=== PATIENT | male | born 1940 | race Caucasian/White ===

== ENCOUNTER → 2023-11-08 14:49 | Outpatient (REF) | payer OTHER, SELFPAY ==
[2023-11-08 15:41] LABS: % Basophils 0.4 % (0-2); % Immature Granulocytes 1.1 % (0-0.5); % Lymphocytes 3.6 % (20.5-51.1); % Monocytes 7.5 % (1.7-9.3); % Neutrophils 87.4 % (42.2-75.2); Absolute Basophils 0.1 10^3/uL (0-0.2); Absolute Immature Granulocytes 0.3 10^3/uL (0-0.05); Absolute Lymphocytes 0.8 10^3/uL (1.2-3.4); Absolute Monocytes 1.7 10^3/uL (0.1-0.6); Absolute Neutrophils 19.7 10^3/uL (1.4-6.5); Hematocrit 43.3 % (39.0-52.0); Mean Corp Hgb Conc. 34.6 g/dL (33.0-37.0); Mean Corpuscular Hgb 30.7 pg (27.0-31.0); Mean Corpuscular Volume 88.5 fL (80.0-94.0); Nucleated Red Blood Cells % 0 % (-); Platelet Count 159 10^3/uL (130-400); Red Blood Cell Count 4.89 10^6/uL (4.70-6.10); Red Cell Dist. Width 13.9 % (11.5-14.5); White Blood Cell Count 22.5 10^3/uL (4.8-10.8)
[2023-11-08 15:56] LABS: ALT (SGPT) 34 U/L (0-50); AST (SGOT) 39 U/L (17-59); Albumin 4.5 g/dl (3.5-5.0); Alkaline Phosphatase 108 U/L (38-126); Blood Urea Nitrogen 23 mg/dl (9-20); Calcium 9.3 mg/dl (8.4-10.2); Carbon Dioxide 19 mmol/L (22-30); Chloride 103 mmol/L (98-107); Glucose 139 mg/dl (70-99); Potassium 4.2 mmol/L (3.5-5.1); Sodium 139 mmol/L (135-145); Total Bilirubin 1.5 mg/dl (0.2-1.3); Total Protein 7.1 g/dl (6.3-8.2); eGFR 54.85
[2023-11-08 16:14] LABS: C-Reactive Protein > 270.00 mg/L (0.0-10.00)
== END ==
LOC: RAD 14:49
PROVIDERS: ATTENDING PHYSICIAN Family Medicine; FAMILY PHYSICIAN Family Medicine
DX: R09.02 Hypoxemia (principal); R50.9 Fever, unspecified; R41.0 Disorientation, unspecified
CPT/HCPCS: 36415; 71046; 80053; 85025; 86140

== ENCOUNTER 2023-11-08 21:31 | Inpatient (IN) | payer OTHER, SELFPAY ==
[2023-11-08 16:59] VITALS: BP 117/85
--- NOTE | 2023-11-08 18:42 | ED.GENMED ---
History of Present Illness
General
Chief Complaint: Abnormal Lab Value
Source: patient, family and physician
Time Seen by Provider: 11/08/23 18:30
History of Present Illness
History of Present Illness:
83-year-old male with past medical history of atrial fibrillation, hypertension, hyperlipidemia, COPD, chronic prostate issues presenting to the emergency department for evaluation at the request of his primary care provider after patient had
abnormal blood work done here earlier this morning revealing a leukocytosis and elevated inflammatory curves. Patient reportedly had a fever of 100.4 this morning and per family seemed a little bit confused. Per primary care patient had a normal
chest x-ray and his urine was likely infectious. Patient does note that since he had a procedure on his prostate about a year ago he has had urinary leakage but reports that this improved throughout the year. He denies any dysuria, hematuria,
current frequency/urgency, malodor or cloudy urine. Patient states presently he feels 'pretty good' and has no specific concerns.
Past History
Past History
ED Past Medical History: Arrthythmia, COPD, HTN and Hypercholesterolemia
ED Past Surgical History: Tonsilectomy
Social History
Tobacco: Non-smoker
Alcohol: None
Drug: None
Personal:
Living: with family
Review of Systems
Review of Systems
All Other Systems: ROS reviewed and negative except as documented in HPI and ROS
Phy Exam
Physical Exam
Physical Exam:
GENERAL: Alert , in no apparent distress
HEAD: NCAT
EYE: conjunctiva clear
NECK: Supple
ENT: mmm.
CARDIAC: Borderline tachycardic rate and rhythm, no murmur
LUNGS: Clear breath sounds bilaterally, no acute respiratory distress, no wheezes/rales/rhonchi
ABDOMEN: soft, non-tender, non distended
NEUROLOGICAL: Alert and oriented x 3
SKIN: Warm and dry, skin intact. no rashes
MUSCULOSKELETAL: well perfused.
PSYCH: Normal and appropriate interaction.
Scores
Heart Failure Risk
Heart Failure Risk Score: Not Applicable
Heart Score for Chest Pain Patients
STEMI patient?: Not applicable
Withdrawal Assessment of Alcohol
Withdrawal Assessment Completed?: Not applicable
Sepsis
Sepsis Screening
Sepsis Assessment: Sepsis
Sepsis Screen
Sepsis Screen: Sepsis
Date: 11/08/23
Time: 22:07
Course
Orders/Labs/Results
Orders:
Orders
11/08/23 18:33
Cardiac Monitoring- Treatment ONCE
11/08/23 18:59
0.9% Sodium Chloride 1000 ml [Nss] 2,400 ml IV NOW STA
11/08/23 19:04
COVID-19 Antigen Urgent
Source: Nasal Swab
Complete Blood Count/With Diff Urgent
Comprehensive Metabolic Panel Urgent
Lactic Acid Q4H
Comment: CANCEL 2nd LACTIC ACID IF 1st LACTIC ACID IS LESS THAN 2
Blood Culture Urgent
[facility] Source: Blood/Venous
Specimen Description:
Influenza A+B Rapid Molecular Urgent
[facility] Source: Nasal Swab
Specimen Description:
11/08/23 20:00
Blood Culture Routine
HIMAN[facility]U Source: Blood/Venous
Specimen Description:
11/08/23 20:03
Urinalysis Reflex To Culture Urgent
Date Specimen was Collected: 11/08/23
Time Specimen was Collected: 20:02
Urine Microscopic Reflex Cult Urgent
Urine Culture Urgent
HIMANSHU Source: U
Specimen Description:
Date Specimen was Collected: 11/08/23
Time Specimen was Collected: 20:02
11/08/23 20:32
Cefepime HCl [Maxipime] 2,000 mg IV NOW STA
11/08/23 20:53
Admit/Transfer Patient As Directed
Co-Sign Provider:
Level of Care: Inpatient admission
Assign to:: Telemetry
Physician / Group: Htay
Diagnosis: Sepsis
Reason for Telemetry: Arrhythmia
Date to Stop Telemetry: 11/11/23
Time to Stop Telemetry: 11:00
Reason for Hospitalization: IV abx
Expected length of stay greater than two midnights?: Yes
ELOS- Estimated Length of Stay in days: 3
I certify the patient meets the requirements for IP care: Yes
PRN Pain Medication Management As Directed
May give lesser potent ordered pain med per pt: Yes
preference::
Protocol:: Medication orders for pain may be administered in a
manner that supports deferring to patient preference
when the pt is:
- Requesting an ordered lesser potent pain medication.
Least to most potent pain medications are defined
as: acetaminophen < NSAID < tramadol < opioids
(morphine, oxycodone, hydromorphone).
- Requesting a lesser dose of the same medication IF
ORDERED.
- Requesting a less intrusive route of administration
if both routes are prescribed by the provider (PO <
IV).
11/08/23 20:55
Code Status As Directed
Resuscitation Status: Full Code
11/08/23 21:05
ECG [Electrocardiogram (*1)] Urgent
Reason for Study: Tachycardia
11/08/23 21:27
Gentamicin Sulfate [Gentamicin] 160 mg 0.9% Sodium Chloride [Nss] 50 ml IV NOW
11/11/23 11:00
DC Protocol for Telemetry ONCE
Abnormal Lab Results
11/08/23 11/08/23
19:04 20:03
WBC 19.9 H 10^3/uL
(4.8-10.8)
MPV 10.5 H fL
(7.4-10.4)
Abs Immat Gran (auto) 0.2 H 10^3/uL
(0-0.05)
Absolute Neuts (auto) 17.3 H 10^3/uL
(1.4-6.5)
Absolute Lymphs (auto) 0.8 L 10^3/uL
(1.2-3.4)
Absolute Monos (auto) 1.5 H 10^3/uL
(0.1-0.6)
Immature Gran % 1.2 H %
(0-0.5)
Neutrophils % 86.8 H %
(42.2-75.2)
Lymphocytes % 3.9 L %
(20.5-51.1)
Carbon Dioxide 19 L mmol/L
(22-30)
BUN 26 H mg/dl
(9-20)
Glucose 112 H mg/dl
(70-99)
Total Bilirubin 1.4 H mg/dl
(0.2-1.3)
Ur Occult Blood Reflex 4+ A
(Negative)
Urine Nitrite (Reflex) Positive A
(Negative)
Urine Bilirubin 1+ A
(Negative)
Leukocyte Esterase Rfl 2+ A
(Negative)
Urine RBC 3-6 A /HPF
(0-2)
Urine WBC (Reflex) 30-40 A /HPF
(0-5)
Urine Bacteria (Reflex) Many A
(Negative)
Urine Albumin (Reflex) 3+ A
(Neg - Trace)
11/08/23 19:04
11/08/23 19:04
Vital Signs
Initial and Last Documented VS:
Initial Vital Signs
Temp Pulse Resp BP Pulse Ox
98.3 F 106 18 117/85 97
11/08/23 16:59 11/08/23 16:59 11/08/23 16:59 11/08/23 16:59 11/08/23 16:59
Last Documented Vital Signs
Temp Pulse Resp BP Pulse Ox
98.3 F 103 20 135/52 94
11/08/23 16:59 11/08/23 19:45 11/08/23 20:00 11/08/23 19:26 11/08/23 19:45
MDM/Problems Addressed
Differential Diagnosis Includes:
cystitis, prostatitis, sepsis, bacteremia, CXR today without infectious signs
MDM/Problems Addressed:
83-year-old male presenting to the emergency department for evaluation at the request of primary care provider for abnormal outpatient labs combined with fever and reported confusion. Labs done earlier today revealed a leukocytosis of 22,000 (it
does appear patient has a baseline elevated white blood cell count but today's is past his baseline of 14,000 patient also appears mildly dehydrated with an elevated BUN and high normal creatinine. CRP also greater than 270. Given patient's
leukocytosis combined with his tachycardia there is some concern for sepsis presentation. Sepsis workup initiated. Anticipate admission
*Pulse Oximetry
Patient hypoxic: no
*Critical Care Note
Total Time (30-74mins, 75-104mins- exclusive of procedures): Not Applicable
Data Reviewed
Review of Other/Old Records Reveals: Labs and Records
Source: patient
Patient Management
Discussion with other providers: Hospitalist
Escalation/DeEscalation of care consider admission/obs:
Patient's labs reveal a leukocytosis which is improved from earlier this afternoon at 19,000. There is no leftward shift. Patient's BUN and creatinine remain the same. Urinalysis does show nitrite positive urine as well as 2+ leukocyte esterase
and 30-40 WBCs. Given patient's reported fever and confusion this morning plan for admission with IV antibiotics and culture trending. Hospitalist team is aware and accepts for continued evaluation and treatment.
ED Attending Note
-
Portions of this chart may have been created with voice recognition software.� Occasional wrong word or��sound alike� substitutions may have occurred due to the inherent limitations of voice recognition software.
Discharge Plan
Departure
Patient Disposition: Admit
Date of Disposition: 11/08/23
Time of Disposition: 20:32
Presentation/result/management discussed w/ accepting MD/DO: Hospitalist
Discharge Problem:
Acute UTI
Interventions
Interventions:
*Risk Screen - Suicide Last Done: 11/08/23 17:05
*General Assessment Last Done: 11/08/23 17:05
*Neglect/Abuse Screening Last Done: 11/08/23 17:05
ED- Fall Risk Assessment Last Done: 11/08/23 19:38
*ED COVID-19 Vaccine History Last Done: 11/08/23 19:38
[2023-11-08] MEDS: NSS 2400 ML IV (19:08)
[2023-11-08 19:19] LABS: % Basophils 0.4 % (0-2); % Immature Granulocytes 1.2 % (0-0.5); % Lymphocytes 3.9 % (20.5-51.1); % Monocytes 7.7 % (1.7-9.3); % Neutrophils 86.8 % (42.2-75.2); Absolute Basophils 0.1 10^3/uL (0-0.2); Absolute Immature Granulocytes 0.2 10^3/uL (0-0.05); Absolute Lymphocytes 0.8 10^3/uL (1.2-3.4); Absolute Monocytes 1.5 10^3/uL (0.1-0.6); Absolute Neutrophils 17.3 10^3/uL (1.4-6.5); Hematocrit 43.3 % (39.0-52.0); Hemoglobin 14.9 g/dL (13.0-18.0); Mean Corp Hgb Conc. 34.4 g/dL (33.0-37.0); Mean Corpuscular Hgb 30.3 pg (27.0-31.0); Mean Corpuscular Volume 88.2 fL (80.0-94.0); Mean Platelet Volume 10.5 fL (7.4-10.4); Nucleated Red Blood Cells % 0 % (-); Platelet Count 148 10^3/uL (130-400); Red Blood Cell Count 4.91 10^6/uL (4.70-6.10); Red Cell Dist. Width 13.9 % (11.5-14.5); White Blood Cell Count 19.9 10^3/uL (4.8-10.8)
[2023-11-08 19:26] VITALS: BP 135/52
[2023-11-08 19:29] LABS: Lactic Acid 1.5 mmol/L (0.7-2.0)
[2023-11-08 19:30] LABS: ALT (SGPT) 33 U/L (0-50); AST (SGOT) 40 U/L (17-59); Albumin 4.4 g/dl (3.5-5.0); Alkaline Phosphatase 109 U/L (38-126); Blood Urea Nitrogen 26 mg/dl (9-20); Calcium 9.1 mg/dl (8.4-10.2); Carbon Dioxide 19 mmol/L (22-30); Chloride 102 mmol/L (98-107); Glucose 112 mg/dl (70-99); Sodium 137 mmol/L (135-145); Total Bilirubin 1.4 mg/dl (0.2-1.3); eGFR 54.85
[2023-11-08 20:00] VITALS: BP 123/73
[2023-11-08 20:12] LABS: Urine Albumin 3+ (Neg - Trace); Urine Bilirubin 1+ (Negative); Urine Character Very Cloudy (Clear); Urine Color Yellow; Urine Glucose Negative (Negative); Urine Ketone Negative (Negative); Urine Leukocyte 2+ (Negative); Urine Nitrite Positive (Negative); Urine Occult Blood 4+ (Negative); Urine Urobilinogen 1+ (Neg - 1+)
[2023-11-08 20:16] LABS: COVID-19 Antigen Negative (Negative)
[2023-11-08 20:18] LABS: Urine Bacteria Many (Negative); Urine White Cell 30-40 /HPF (0-5)
--- NOTE | 2023-11-08 20:53 | HPS.HSE ---
Family Physician
-
Family Physician: Francisco Chandra
Chief Complaint
-
Abnormal Blood Work
History of Present Illness
Patient is a 83 y/o male past medical history of atrial fibrillation, hypertension, COPD and pre-diabetes who presents with abnormal blood work. Patient reports he had routine blood work done today which was concerning for infection and his PCP
sent him to the emergency department for evaluation. He reports some chills a few days ago, but no recorded fevers. He denies cough, shortness of breath, chest pain, abdominal pain, nausea, vomiting or diarrhea. He reports chronic urinary leakage
but denies dysuria or urinary frequency.
Medical History
Past Medical History
Past Medical History: Reports Other
Additional Past Medical History:
Paroxysmal Atrial Fibrillation
Essential Hypertension
Hyperlipidemia
Pre-Diabetes
CKD Stage II
COPD
Hepatic Steatosis
Alcohol Use Disorder
Past Surgical History: Reports Other
Additional Past Surgical History:
Tonsillectomy
Social History
Tobacco: Former Smoker (Quit 10-15 years ago)
Alcohol: Daily ('A few beers a day')
Family History
Family History: Not pertinent
Allergies / Home Medications
Allergies reflects when Allergies were last updated in [facility].
Home Medications with original date entered in [facility]
Allergy/Medication List:
Allergies
Allergy/AdvReac Type Severity Reaction Status Date / Time
No Known Allergies Allergy Verified 11/08/23 16:59
Home Medications
acetaminophen 325 mg tablet 650 mg PO DAILY 08/23/22
albuterol sulfate 90 mcg/actuation aerosol inhaler 2 puff inhalation R Q6HPRN PRN sob 11/08/23
amlodipine 2.5 mg tablet 2.5 mg PO DAILY 11/08/23
apixaban 5 mg tablet (Eliquis) 2.5 mg PO BID 11/08/23
budesonide-formoterol HFA 80 mcg-4.5 mcg/actuation aerosol inhaler (Symbicort) 2 puff inhalation R BID 11/08/23
cyanocobalamin (vitamin B-12) 1,000 mcg tablet 1,000 mcg PO DAILY 11/08/23
rosuvastatin 5 mg tablet 5 mg PO DAILY 11/08/23
Review of Systems
-
A 12 point ROS was completed and negative except as noted: Yes
Constitutional: Denies Fever or Chills
Respiratory: Denies Cough or Trouble Breathing
Cardiac: Denies Chest Pain or Diaphoresis
Abdomen/GI: Denies Abdominal Pain, Nausea or Vomiting
: Reports Other (Chronic Urinary Leakage); Denies Dysuria or Frequency
Physical Exam
Vital Signs
Vital Signs
Temp Pulse Resp BP Pulse Ox
98.3 F 103 20 135/52 94
11/08/23 16:59 11/08/23 19:45 11/08/23 20:00 11/08/23 19:26 11/08/23 19:45
Physical Exam
General: Comfortable, Conversant and Other (Unkempt with strong odor of urine noted upon entering the room)
HEENT: NormoCephalic, Anicteric and Atraumatic
Respiratory: Clear and Non Labored Respirations
Cardiac: S1/S2 and Regular Rhythm
GI: Soft and Non Tender
Rectal: Deferred by Provider
Musculoskeletal: No Clubbing, No Cyanosis and No Edema
Skin: Warm and Dry
Neuro: Awake, Alert, Oriented and Nonfocal/grossly intact
Psych: Calm
Laboratory Results
-
11/08/23 19:04
11/08/23 19:04
Laboratory Results
Lactic Acid Cancelled 11/08/23 22:45
Total Bilirubin 1.4 mg/dl (0.2-1.3) H 11/08/23 19:04
AST 40 U/L (17-59) 11/08/23 19:04
ALT 33 U/L (0-50) 11/08/23 19:04
Alkaline Phosphatase 109 U/L (38-126) 11/08/23 19:04
Data Reviewed
-
Diagnostic Radiology: Report Reviewed by me (Chest X-Ray)
Lab Data: Labs Reviewed by me
Old Records: Reviewed
Impression/Plan
-
Sepsis secondary to Urinary Tract Infection
-Continue ceftriaxone
-Await urine and blood cultures
-Patient with prior history of prostate abscess - If symptoms not improving consider further imaging
Paroxysmal Atrial Fibrillation
-Continue Eliquis for anticoagulation
-Patient is not on any rate controlling medications
Essential Hypertension
-Continue amlodipine with hold parameters
Hyperlipidemia
-Continue Crestor
Pre-Diabetes noted previously
-Check HgbA1x
COPD, no acute exacerbation
-Continue Symbicort
Alcohol Use Disorder
-Continue thiamine and folic acid
-Continue alcohol withdrawal protocol
DVT proph: Eliquis
Code Status: Full Code
[2023-11-08 21:00] VITALS: BP 107/53
--- NOTE | 2023-11-08 21:07 | W.PN.UPDATE ---
Update Note
Progress Note Update
This note serves as an addendum to the H&P by systems software manager GABBIE Manisha ROSS
HPI
82M HX PAF, HTN, COPD, Fatty liver, recently diagnosed cirrhosis, ETOH use disorder sent to ER for abnormal labs with hi WCC and increased inflammatory markers.
- associated with Fever 100.4 this morning associated and confused
- at ER, UA suggest UTI
- HX procedure on his prostate about a year ago he has had urinary leakage but reports that this improvedover the year.
PHX
Pneumonia complicated by acute Hypoxic Respiratory Failure
Severe Sepsis due to prostate Abscess status post transurethral resection of Prostate
Fatty Liver Disease,
Paroxysmal atrial fibrillation
Hypertension,
Hyperlipidemia,
Prediabetes,
H Alcohol Use Disorder
Abdomen Aorta Aneurysm
Iliac artery aneurysms,
Interstitial Lung Disease
Pneumonitis
Anemia
Reviewed VS: Afebrile tachycardic 103 otherwise unremarkable
PE
Gen: Unkempt, poor personal hygiene Not toxic
HEENT: Anicteric
Neck: supple , NAD
Lungs: symmetric AE
Cor: Irregular , S1 S2
Abdomen: soft, non-tender, non distended
MENDING CARRIER: NFND
MS: no edema
Psych: Normal and appropriate interaction.
Data
WCC 19.9
CO2 19
BUN 26
Cr 1.3 - baseline 0.8
eGFR 54
TB 1.4
Abn UA suggestive of UTI
NEG Covid
Last hospitalist admission:Date of Admission: 08/23/22 - Date of Discharge: 09/05/22
DC Dxs:
Pneumonia complicated by acute Hypoxic Respiratory Failure
Severe Sepsis due to prostate Abscess status post transurethral resection of Prostate
Fatty Liver Disease,
ASSESSMENT & PLAN
Sepsis due to UTI
Uncomplicated UTI
Associated JAYNE
HX improving urinary incontinence s/p prosate procedure in 2022
- No prior POX UVCX in [place]
- F/U UCx
- BCX time 2 sent
- S/P septic NS bolus IV NS
- Empiric IV CFTZ
- Tylenol PRN
- Trend T, WCC, Cr
Paroxysmal AF
- cont. Eliquis
Essential Hypertension
- cont. Amlodipine
Hyperlipidemia
- cont Crestor
T2DM : Prediabetes ?
- check A1 C
Recently Diagnosed Cirrhosis
HX ETOH se Disorder
- observe on MSAS for ETOH WD protocol
DVT Px Eliquis
Code Status: Full Code
IP TLM
[2023-11-08] MEDS: MAXIPIME 2000 MG IV (21:25)
[2023-11-08] MEDS: GENTAMICIN 54 MG IV (21:56)
[2023-11-08 22:00] VITALS: BP 123/62
[2023-11-08 22:57] VITALS: BP 140/96; BMI 26.1
--- NOTE | 2023-11-08 23:00 | PTCARENOTE ---
Pt transferred from ED. Pt AAOX3, forgetful, bed alarm applied, VSS. Pt oriented to unit, call steven within reach. Will continue with current plan.
[2023-11-08] MEDS: NSS 1000 IV (23:14)
[2023-11-09 03:36] VITALS: BP 134/83
[2023-11-09 05:12] VITALS: BMI 26.1
[2023-11-09] MEDS: ROCEPHIN 1000 MG IV (05:24)
[2023-11-09] MEDS: STERILE WATER FOR INJECTION 10 ML IV (05:24)
[2023-11-09 07:30] VITALS: BP 126/83
[2023-11-09] MEDS: SYMBICORT 80/4.5 MCG INHALER 2 PUFF INH ×2 (08:18→20:48)
[2023-11-09] MEDS: CRESTOR 5 MG PO (08:38)
[2023-11-09] MEDS: NORVASC 2.5 MG PO (08:38)
[2023-11-09] MEDS: ELIQUIS 2.5 MG PO ×2 (08:39→21:01)
[2023-11-09] MEDS: FOLVITE 1 MG PO (08:39)
[2023-11-09] MEDS: THIAMINE INJECTION 200 MG IV ×2 (08:39→21:01)
[2023-11-09 08:59] LABS: Hemoglobin 13.8 g/dL (13.0-18.0); Mean Corp Hgb Conc. 34.5 g/dL (33.0-37.0); Mean Corpuscular Hgb 30.5 pg (27.0-31.0); Mean Corpuscular Volume 88.5 fL (80.0-94.0); Mean Platelet Volume 10.5 fL (7.4-10.4); Platelet Count 129 10^3/uL (130-400); Red Blood Cell Count 4.52 10^6/uL (4.70-6.10); Red Cell Dist. Width 13.7 % (11.5-14.5); White Blood Cell Count 16.6 10^3/uL (4.8-10.8)
--- NOTE | 2023-11-09 09:05 | W.PN.HOSP.TC ---
Today's Communication/Plan
-
iv atb
follow up bcx and ucx
if not imrpotocing check ct ap with con
Assessment / Plan
Assessment / Plan
NAD, resting comfortably in bed
Scleral anicteric
Moist mucous membranes
No JVD
CTA bilateral
Normal S1-S2 no murmurs
Soft nontender nondistended bowel sounds active
No peripheral pitting edema
Moves extremities spontaneously
AAOx3
sepsis (white ocunt, hr), source : UTI.
ucx
bcx x1
ctx
antipyretics prn
if not improving then check ctap with con
parox afib
contineu eliquis
htn
contineu ccb
hld
continue crrestor
hepatic steatosis, no hx of cirrhosis, this was confirmed with Mr. Strange
continue crestor
outpt hepatology follow up
dietary and exercise management
alochol use disorder
thiamine and folate
drinks 2-3cans of beer daily
msas
Anticipated Discharge: 24 - 48 hours
Subjective/Interval History
-
Date of Service: November 09, 2023
seen and examined
no new compalints
no acute overnight events
states feeling much better
admits that 1 year ago, had a similar episode and at that time diagnosised with sepsis. unsure of sourse
admits to difficulty urinating and chills
without dysuria
Objective Data
-
Labs:
Laboratory Results
11/09/23
08:35
WBC 16.6 H
Hgb 13.8
Hct 40.0
Plt Count 129 L
Sodium Pending
Potassium Pending
Chloride Pending
Carbon Dioxide Pending
BUN Pending
Creatinine Pending
Glucose Pending
Calcium Pending
Total Bilirubin Pending
AST Pending
ALT Pending
Alkaline Phosphatase Pending
Vital Signs:
Vital Signs
Temp Pulse Resp BP Pulse Ox
98.4 F 71 16 126/83 98
11/09/23 07:30 11/09/23 08:24 11/09/23 08:24 11/09/23 07:30 11/09/23 08:24
I&O
11/08/23 11/09/23 11/10/23
06:59 06:59 06:59
Intake Total 600 / 600
Output Total 350 / 350
Balance 250 / 250
[2023-11-09 10:10] LABS: ALT (SGPT) 27 U/L (0-50); AST (SGOT) 32 U/L (17-59); Albumin 3.6 g/dl (3.5-5.0); Alkaline Phosphatase 107 U/L (38-126); Blood Urea Nitrogen 21 mg/dl (9-20); Calcium 8.9 mg/dl (8.4-10.2); Carbon Dioxide 19 mmol/L (22-30); Chloride 107 mmol/L (98-107); Estimated Creatinine Clearance 57 ml/min; GGTP 174 U/L (15-73); Glucose 107 mg/dl (70-99); Magnesium 2.3 mg/dl (1.6-2.3); Phosphorus 2.5 mg/dl (2.5-4.5); Potassium 3.6 mmol/L (3.5-5.1); Sodium 140 mmol/L (135-145); Total Bilirubin 0.9 mg/dl (0.2-1.3); eGFR > 60.00
[2023-11-09 10:16] LABS: Glycohemoglobin (HgbA1c) 5.5 % (4.0-5.6)
[2023-11-09 11:00] VITALS: BP 130/90
[2023-11-09] MEDS: NSS 1000 IV (15:26)
[2023-11-09 15:44] VITALS: BP 148/88
--- NOTE | 2023-11-09 17:05 | CM ---
assistant casino shift manager reviewed patient's chart and met with patient and patient lives with his girlfriend 6 months in [place] and 6 months in this area, patient has an RV with 3 steps to enter, patient is independent with adl's and ambulation, no dme,
patient. drives. assistant casino shift manager received a consult for possible substance support treatment options however patient declined a referral to [facility].
Pharmacy: [facility] in [place]
PCP: Dr. Chandra
Plan; Home no needs when stable.
[2023-11-09 19:53] VITALS: BP 139/79
[2023-11-09 23:06] VITALS: BP 146/88
--- NOTE | 2023-11-10 01:00 | PTCARENOTE ---
Pt sustaining in the 110s-120s. Pt afib on monitor. Pt comfortable, no symptoms. ALVARO Leyva notified. No new orders obtained. Will continue with current plan.
[2023-11-10 03:26] VITALS: BP 136/75
[2023-11-10] MEDS: STERILE WATER FOR INJECTION 10 ML IV (05:07)
[2023-11-10] MEDS: ROCEPHIN 1000 MG IV (05:07)
[2023-11-10 05:39] VITALS: BMI 25.9
[2023-11-10 07:30] VITALS: BP 146/92
[2023-11-10] MEDS: SYMBICORT 80/4.5 MCG INHALER 2 PUFF INH (08:25)
[2023-11-10] MEDS: ELIQUIS 2.5 MG PO (08:36)
[2023-11-10] MEDS: FOLVITE 1 MG PO (08:37)
[2023-11-10] MEDS: THIAMINE INJECTION 200 MG IV (08:37)
[2023-11-10] MEDS: NORVASC 2.5 MG PO (08:37)
[2023-11-10] MEDS: CRESTOR 5 MG PO (08:37)
--- NOTE | 2023-11-10 09:49 | PN.CDI ---
CDI
- -
CDI:
Physician Documentation Request
Admit Date: 11/08/23 21:31
Dear Doctor Loc,
Patient admitted for sepsis.
11/08 Hospitalist PN: 'alcohol use disorder, thiamine and folate, drinks 2-3cans of beer daily, msas'
Selected Entries
11/08/23
23:00 11/09/23
19:00 11/10/23
07:00
MSAS SCORE 2 2 2
If possible, please specify the pattern of use, include all that apply:
- Use, with or without abuse and/or dependence
- Abuse with or without dependence
- Dependence
- Unable to determine
Use of terms such as suspected, likely, concern for, or probable (associated with a specific diagnosis that is being evaluated, monitored, or treated as if it exists) are acceptable and can be coded in the inpatient setting, when documented at the
time of discharge.
Thank you,
uZlay Flowers RN, BSN
CDI Specialist
Available via [facility] text
Please use your independent medical judgment in providing your response.
--- NOTE | 2023-11-10 12:11 | CM ---
Home no needs when stable.
Plan; Home no needs.
--- NOTE | 2023-11-10 13:37 | W.DCSUMMARY ---
Discharge Summary
Discharge Data
Date of Admission: 11/08/23
Date of Discharge: 11/10/23
-
Pending Results: No
Hospital Course
83 M History of atrial fibrillation, hypertension, COPD and pre-diabetes Presents for abnormal outpatient blood work for which was concerning for infection also had chills. History of prostate abscess that was drained. Concern for UTI due to UA
findings and complaints of urinary hesitancy. Urine culture and blood culture growing pansensitive E. coli. Symptomatology improved on Rocephin. Will discharge home on amoxicillin 500mg TID x10day with outpatient follow up with Urology.
Discharge Plan
-
Patient Disposition: Home (Routine Discharge)
Discharge Diagnosis/Procedures: EColi bacteremia for UTI
History of atrial fibrillation, hypertension, COPD and pre-diabetes
Condition: Good
Diet: No restrictions and As tolerated
Activity: No restrictions and As tolerated
Driving Restrictions: As prior to admission
Activity Restrictions/Additional Instructions:
Presents for abnormal outpatient blood work for which was concerning for infection also had chills. History of prostate abscess that was drained. Concern for UTI due to UA findings and complaints of urinary hesitancy. Urine culture and blood
culture growing pansensitive E. coli. Symptomatology improved on Rocephin. Will discharge home on amoxicillin 500mg TID x10day with outpatient follow up with Urology.
Referrals:
Francisco Chandra MD [Family Provider] -
Jared Lepe MD [Active] - in one to two weeks
Prescriptions:
New
folic acid 1 mg Tablet
1 mg PO DAILY 30 Days Qty: 30 0RF
thiamine HCl (vitamin B1) 100 mg Tablet
100 mg PO BID 30 Days Qty: 60 0RF
amoxicillin 500 mg capsule
500 mg PO Q8H 30 Days Qty: 90 0RF
Continued
acetaminophen 325 mg Tablet
650 mg PO DAILY
cyanocobalamin (vitamin B-12) 1,000 mcg Tablet
1,000 mcg PO DAILY
amlodipine 2.5 mg Tablet
2.5 mg PO DAILY
albuterol sulfate 90 mcg/actuation Hfa Aerosol Inhaler
2 puff INHALATION R Q6HPRN PRN (Reason: sob)
rosuvastatin 5 mg Tablet
5 mg PO DAILY
budesonide-formoterol [Symbicort] 80-4.5 mcg/actuation Hfa Aerosol Inhaler
2 puff INHALATION R BID
Eliquis 5 mg Tablet
2.5 mg PO BID
Discharge Orders:
Discharge Patient (As Directed); Ordered 11/10/23
Ordered By: Noel Monterroso
Discharge Date and Time
Print Language: SCOTTISH
--- NOTE | 2023-11-10 13:38 | W.PN.HOSP.TC ---
Addendum entered and electronically signed by Noel Monterroso MD 11/10/23 14:10:
Use, with or without abuse and/or dependence
Original Note:
Today's Communication/Plan
-
DC home
Total time spent dsicharging 32mins
Assessment / Plan
Assessment / Plan
NAD, resting comfortably in bed
Scleral anicteric
Moist mucous membranes
No JVD
CTA bilateral
Normal S1-S2 no murmurs
Soft nontender nondistended bowel sounds active
No peripheral pitting edema
Moves extremities spontaneously
AAOx3
sepsis (white ocunt, hr), source : UTI.
ucx -pansensitive E. coli
bcx x1 -E. coli
ctx
antipyretics prn
if not improving then check ctap with con
parox afib
contineu eliquis
htn
contineu ccb
hld
continue crrestor
hepatic steatosis, no hx of cirrhosis, this was confirmed with Mr. Strange
continue crestor
outpt hepatology follow up
dietary and exercise management
alochol use disorder
thiamine and folate
drinks 2-3cans of beer daily
msas
Discharge home on amoxicillin 500 mg 3 times daily x 10 days with outpatient urology follow-up
Anticipated Discharge: Today
Subjective/Interval History
-
Date of Service: November 10, 2023
Seen and examined. Feeling much better. Asking when he is going home.
Objective Data
-
Vital Signs:
Vital Signs
Temp Pulse Resp BP Pulse Ox
98.4 F 120 20 146/92 96
11/10/23 07:30 11/10/23 07:30 11/10/23 07:30 11/10/23 07:30 10/04/24 07:30
I&O
11/09/23 11/10/23 11/11/23
06:59 06:59 06:59
Intake Total 600 / 600 300 / 300
Output Total 350 / 350 1750 / 1750
Balance 250 / 250 -1450 / -1450
[2023-11-10 15:00] VITALS: BP 120/73
== END 2023-11-10 16:26 | disposition home or self-care (01) | DRG 872 ==
LOC: 4 WEST ACU 21:31
PROVIDERS: Physician Assistant Medical; ADMITTING PHYSICIAN Internal Medicine; ATTENDING PHYSICIAN Hospitalist; EMERGENCY PHYSICIAN Emergency Medicine; FAMILY PHYSICIAN Family Medicine
DX: A41.51 Sepsis due to Escherichia coli [E. coli] (principal); N17.9 Acute kidney failure, unspecified; J84.9 Interstitial pulmonary disease, unspecified; N39.0 Urinary tract infection, site not specified; D63.1 Anemia in chronic kidney disease; K74.60 Unspecified cirrhosis of liver; K76.0 Fatty (change of) liver, not elsewhere classified; I12.9 Hypertensive chronic kidney disease with stage 1 through stage 4 chronic kidney disease, or unspecified chronic kidney disease; I71.9 Aortic aneurysm of unspecified site, without rupture; J44.9 Chronic obstructive pulmonary disease, unspecified; E78.00 Pure hypercholesterolemia, unspecified; N18.2 Chronic kidney disease, stage 2 (mild); I48.0 Paroxysmal atrial fibrillation; F10.90 Alcohol use, unspecified, uncomplicated; R73.03 Prediabetes; R32 Unspecified urinary incontinence; Z79.01 Long term (current) use of anticoagulants; Z79.51 Long term (current) use of inhaled steroids; Z79.899 Other long term (current) drug therapy; Z87.891 Personal history of nicotine dependence; Z86.79 Personal history of other diseases of the circulatory system; Z87.01 Personal history of pneumonia (recurrent)
CPT/HCPCS: 80053; 81003; 81015; 82977; 83036; 83605; 83735; 84100; 85025; 85027; 87040; 87086; 87088; 87149; 87186; 87205; 87502; 87811; 93005; 94640; 96361; 96365; 96375; 99284